=== PATIENT | female | born 1995 ===

== ENCOUNTER 2023-02-12 09:50 | Inpatient (IN) | payer OTHER ==
[2023-02-12] MEDS ORDERED: AMPICILLIN SODIUM 2 GM VIAL ONE (09:59)
[2023-02-12] MEDS: DEXTROSE 5%-LACTATED RINGERS 1,000 ML IV SCH (10:00)
[2023-02-12] MEDS ORDERED: OXYTOCIN 20 UNITS in 0.9% NS 20 UNIT/1,000 ML INFUS.BAG IV ONE ×2 (10:16→13:50)
[2023-02-12 10:49] LABS: HEMATOCRIT 32.9 % (32.4-45.2); HEMOGLOBIN 10.8 GM/dL (10.7-15.3); MCH 25.6 pg (25.7-33.7); MCHC 32.9 g/dl (32.0-36.0); MEAN CELL VOLUME 77.8 fl (80-96); MEAN PLT VOLUME 8.3 fl (7.5-11.1); PLATELET COUNT 315 10^3/uL (134-434); RBC 4.23 M/mm3 (3.60-5.2); RDW 14.1 % (11.6-15.6)
[2023-02-12 10:55] LABS: INR 0.96 (0.83-1.09); PROTHROMBIN TIME (PATIENT) 11.1 SEC (9.7-13.0)
[2023-02-12 10:57] LABS: ACTIVATED PTT 29.7 SECONDS (25.2-36.5)
[2023-02-12] MEDS ORDERED: METHYLERGONOVINE MALEATE 0.2 MG/1 ML AMP IM PRN (11:06)
[2023-02-12] MEDS ORDERED: BISACODYL 10 MG SUPP.RECT RC PRN (11:06)
[2023-02-12] MEDS ORDERED: BENZOCAINE 28 GM HEMORRHOIDAL OINTMENT TP PRN (11:06)
[2023-02-12] MEDS ORDERED: oxyCODONE HCL 5 MG TABLET PO PRN (11:06)
[2023-02-12] MEDS ORDERED: BENZOCAINE 20% 57 GM BOTTLE TP PRN (11:06)
[2023-02-12] MEDS ORDERED: ACETAMINOPHEN 325 MG TABLET (FP) PO PRN (11:06)
[2023-02-12] MEDS ORDERED: WITCH HAZEL 50% (TUCKS) 40 PAD/JAR PAD TP PRN (11:06)
[2023-02-12 11:09] LABS: BLOOD UREA NITROGEN 8.8 mg/dL (7-18)
[2023-02-12 11:13] LABS: CREATININE 0.7 mg/dL (0.55-1.3)
[2023-02-12] MEDS ORDERED: OXYTOCIN 20 UNITS in 0.9% NS 20 UNIT/1,000 ML INFUS.BAG IV SCH (11:15)
[2023-02-12] MEDS ORDERED: AMPICILLIN - 2 GM in SODIUM CHLORIDE 100 ML IVPB ONE (11:30)
[2023-02-12] MEDS: IBUPROFEN 600 MG TABLET (FP) PO PRN ×2 (11:30→21:07)
[2023-02-12 11:42] LABS: SYPHILIS W/ RPR CONF NON-REACTIVE (NONREACTIVE)
[2023-02-12 12:00] VITALS: BMI 26.4
[2023-02-12 12:10] LABS: HIV INTERPRETATION NEGATIVE (NEGATIVE)
[2023-02-12 12:27] LABS: ANISOCYTOSIS 0; HELMET CELLS 0; HOWELL-JOLLY BODIES 0; MACROCYTOSIS 0; OVALOCYTE 0; ROULEAU 0; SICKELED CELLS 0; TARGET CELLS 0; TEAR DROP CELLS 0; TOXIC GRANULATION 0
[2023-02-13 07:51] LABS: BASO % 0.2 % (0-2.0); EOS % 0.2 % (0-4.5); HEMATOCRIT 28.3 % (32.4-45.2); HEMOGLOBIN 9.3 GM/dL (10.7-15.3); LYMPH % 16.8 % (8-40); MCH 25.9 pg (25.7-33.7); MEAN CELL VOLUME 78.5 fl (80-96); MEAN PLT VOLUME 8.6 fl (7.5-11.1); MONO % 7.4 % (3.8-10.2); NEUT % 75.4 % (42.8-82.8); PLATELET COUNT 258 10^3/uL (134-434); RBC 3.61 M/mm3 (3.60-5.2); RDW 13.8 % (11.6-15.6); WHITE BLOOD COUNT 18.6 K/mm3 (4.0-10.0)
[2023-02-13] MEDS: PRENATAL VITAMINS W/ FOLIC ACID TABLET (FP) PO SCH (10:11)
[2023-02-13] MEDS: DEXTROSE 5%-LACTATED RINGERS 1,000 ML IV SCH (19:35)
[2023-02-13] MEDS ORDERED: SENNOSIDES/DOCUSATE COMBO (SENNA PLUS) TABLET (UD) PO PRN (22:00)
[2023-02-14 09:14] VITALS: BP 105/58; PULSE 69; RESP 16; TEMP 98.1
[2023-02-14] MEDS: PRENATAL VITAMINS W/ FOLIC ACID TABLET (FP) PO SCH (11:26)
== END 2023-02-14 12:00 | disposition home or self-care (01) | DRG 807 ==
LOC: JDEL 09:50 → JLDR 09:54 → J3W 14:00
PROVIDERS: ADMIT Obstetrics & Gynecology; ATTEND Obstetrics & Gynecology
PROC: 10E0XZZ Delivery of Products of Conception, External Approach (ICD-10-PCS; principal; 2023-02-12)
DX: O77.0 Labor and delivery complicated by meconium in amniotic fluid (principal); Z37.0 Single live birth; Z3A.38 38 weeks gestation of pregnancy
CPT/HCPCS: 36415; 59409; 80048; 85025; 85610; 85730; 86780; 86850; 86900; 86901; 87389; C9803-CS; U0003; U0005